=== PATIENT | male | born 1985 | race Caucasian/White ===

== ENCOUNTER 2025-08-13 23:03 | Emergency (ER) | payer OTHER ==
[~2025-08-13] VITALS: Ht 177.8 cm; Wt 83.9 kg
[2025-08-14 01:03] VITALS: BP 123/70; TEMP 98.3; O2SAT 95
[2025-08-14] MEDS ORDERED: KETOROLAC TROMETHAMINE 15 MG/ML VIAL ONE (01:38)
[2025-08-14] MEDS ORDERED: KETO10TA2 PO (01:39)
[2025-08-14] MEDS: KETOROLAC TROMETHAMINE 15 MG/ML VIAL IM ONE (01:43)
== END 2025-08-14 01:44 | disposition home or self-care (01) ==
LOC: ER 23:18
DX: M25.552 Pain in left hip (principal); D57.1 Sickle-cell disease without crisis; Z91.013 Allergy to seafood
CPT/HCPCS: 99283; 96372; J1885